=== PATIENT | male | born 1940 | race Caucasian/White ===

== ENCOUNTER 2023-09-03 13:45 | Emergency (ER) | payer OTHER, SELFPAY ==
[2023-09-03 13:56] VITALS: BP 127/55
--- NOTE | 2023-09-03 16:14 | ED.GENMED ---
History of Present Illness
General
Chief Complaint: Cold/Flu/URI Symptoms
Source: patient and spouse
Time Seen by Provider: 09/03/23 16:06
Travel History
Have you had any contact with someone who has COVID-19?: Yes
Comment: pt +
Do you have any symptoms of coronavirus? Fever > 100 degrees, chills, cough, shortness of breath, sore throat, loss of taste or smell, muscle aches, or headache?: Yes
Symptoms:: cough sob
History of Present Illness
History of Present Illness:
83-year-old male with past medical history of hypertension, hyperlipidemia, previous [place] status post 2 cardiac stents presenting to the emergency department with after patient tested positive for COVID at home this past which is the
same day his symptoms started, seen by primary care physician yesterday and tested positive in the office as well coming into the emergency department with who is concerned that patient seemed a little bit more fatigued today and noticed his
pulse ox was very low at home. Patient's was very concerned after patient had COVID in 2019 and got very ill from this. She notes that the patient did not sleep very well last night and had diarrhea throughout the night. Today patient states
he is little bit fatigued but otherwise has no other concerns including chest pain, palpitations, diaphoresis, exertional dyspnea, orthopnea, peripheral edema, abdominal pain or any other concerns.
Past History
Past History
ED Past Medical History: CAD, HTN, Hypercholesterolemia, [place], Renal failure, Psychiatric (anxiety) and Other (nephrotic syndrome w CKD stage III,)
ED Past Surgical History: Cardiac
Social History
Tobacco: Non-smoker
Alcohol: None
Drug: None
Personal:
Living: with family
Review of Systems
Review of Systems
All Other Systems: ROS reviewed and negative except as documented in HPI and ROS
Phy Exam
Physical Exam
Physical Exam:
GENERAL: Alert , in no apparent distress, resting comfortably
EYE: conjunctiva clear
NECK: Supple
ENT: o/p clr, mmm.
LUNGS: no acute respiratory distress
NEUROLOGICAL: Alert and oriented
SKIN: Warm and dry, skin intact.
MUSCULOSKELETAL: well perfused.
PSYCH: Normal and appropriate interaction.
Scores
Heart Failure Risk
Heart Failure Risk Score: Not Applicable
Heart Score for Chest Pain Patients
STEMI patient?: Not applicable
Withdrawal Assessment of Alcohol
Withdrawal Assessment Completed?: Not applicable
Course
Orders/Labs/Results
Orders:
Orders
09/03/23 16:14
CR Chest - 2 Views Urgent
Comment:
Reason For Exam: covid, mild SOB, pulse ox 93%
Vital Signs
Initial and Last Documented VS:
Initial Vital Signs
Temp Pulse Resp BP Pulse Ox
98.4 F 60 16 127/55 93
09/03/23 13:56 09/03/23 13:56 09/03/23 13:56 09/03/23 13:56 09/03/23 13:56
Last Documented Vital Signs
Temp Pulse Resp BP Pulse Ox
98.4 F 60 16 127/55 92
09/03/23 13:56 09/03/23 13:56 09/03/23 13:56 09/03/23 13:56 09/03/23 16:09
MDM/Problems Addressed
MDM/Problems Addressed:
83-year-old male presenting emergency department for evaluation with known COVID x 2 days, started Paxlovid yesterday as well as Mucinex. was concerned with hypoxia at home based off of their pulse oximeter. In the emergency department
patient's pulse ox is persistently between 92 and 95%. Interestingly pulse ox actually increased while patient was ambulating. He did so with no acute distress. Will obtain a chest x-ray. Ultimately I feel patient will still be able to be
discharged home with return precautions discussed with . Reassessment following chest x-ray.
*Radiology
Radiology exam reviewed: preliminary read by ED provider (Trace left pleural effusion)
*Pulse Oximetry
Patient hypoxic: no
*Critical Care Note
Total Time (30-74mins, 75-104mins- exclusive of procedures): Not Applicable
Patient Management
Escalation/DeEscalation of care consider admission/obs:
Patient's pulse ox actually increased while he was ambulating to 94 to 95%. He remains in no acute respiratory distress. Chest x-ray shows a very small left pleural effusion. I discussed this finding with the patient and . Advised to have a
repeat chest x-ray within 1 to 2 weeks to monitor this. Discussed return precautions to the ER but patient is otherwise stable for discharge home.
ED Attending Note
-
Portions of this chart may have been created with voice recognition software.� Occasional wrong word or��sound alike� substitutions may have occurred due to the inherent limitations of voice recognition software.
Discharge Plan
Departure
Patient Disposition: Home (Routine Discharge)
Date of Disposition: 09/03/23
Time of Disposition: 16:59
Patient with high blood pressure during this ER visit?: No
Discharge Problem:
COVID-19
Instructions: COVID-19 (DC)
Prescriptions:
No Action
losartan 50 MG tablet
100 mg PO DAILY
atorvastatin 40 MG tablet
80 mg PO HS
clonazepam 0.5 MG tablet
0.5 mg PO TID
Patient Comments:
04/16/2020-patient lasted filled 04/06/2020 #90
metoprolol succinate 100 MG tablet extended release 24 hr
150 mg PO DAILY
aspirin 81 MG tablet,delayed release (DR/EC)
81 mg PO HS
tamsulosin 0.4 MG capsule
0.8 mg PO HS
amlodipine 10 MG tablet
10 mg PO DAILY
pantoprazole 40 MG tablet,delayed release (DR/EC)
40 mg PO DAILY
buspirone [BuSpar] 30 MG tablet
30 mg PO BID
fish oil-dha-epa 1 EACH capsule
1,200 mg PO DAILY
coenzyme [id number] 1 CAP capsule
100 mg PO DAILY
cefuroxime axetil 500 MG tablet
500 mg PO BID Qty: 14 0RF
hydralazine 50 MG tablet
50 mg PO BID
multivitamin with folic acid [Tab-A-Robel] 1 TABLET tablet
1 tab PO DAILY
Referrals:
Richy Rajan MD [Family Provider] -
Interventions
Interventions:
*Risk Screen - Suicide Last Done: 09/03/23 16:09
*Neglect/Abuse Screening Last Done: 09/03/23 16:08
ED- Fall Risk Assessment Last Done: 09/03/23 16:10
*ED COVID-19 Vaccine History Last Done: 09/03/23 13:56
ED- Pulmonary Assessment Last Done: 09/03/23 16:09
== END 2023-09-03 17:23 | disposition home or self-care (01) ==
LOC: EMR 13:45
PROVIDERS: EMERGENCY PHYSICIAN Emergency Medicine; FAMILY PHYSICIAN Internal Medicine
DX: U07.1 COVID-19 (principal); I12.9 Hypertensive chronic kidney disease with stage 1 through stage 4 chronic kidney disease, or unspecified chronic kidney disease; N18.30 Chronic kidney disease, stage 3 unspecified; E78.00 Pure hypercholesterolemia, unspecified
CPT/HCPCS: 99283; 71046

== ENCOUNTER 2023-09-09 22:13 | Observation (INO) | payer OTHER, SELFPAY ==
[2023-09-09 17:29] VITALS: BP 193/80
[2023-09-09 17:46] VITALS: BMI 27.0
[2023-09-09 17:46] LABS: Glucose - Point of Care 99 mg/dl (70-99)
[2023-09-09 18:26] VITALS: BP 178/70
--- NOTE | 2023-09-09 18:27 | ED.GENMED ---
History of Present Illness
General
Chief Complaint: Change in Mental Status
Source: patient and spouse
Exam Limitations: none
Time Seen by Provider: 09/09/23 18:00
Travel History
Have you had any contact with someone who has COVID-19?: Yes
Comment: COVID +
Do you have any symptoms of coronavirus? Fever > 100 degrees, chills, cough, shortness of breath, sore throat, loss of taste or smell, muscle aches, or headache?: Yes
Symptoms:: COVID +
History of Present Illness
History of Present Illness:
This is a 83 year old male that is brought in by family with c/o confusion. states that he did not sleep last night. States that he took Mucinex DM before going to bed and she told him he would be sorry. Patient states that he was having
dreams and then he was up to the BR and couldn't go back to sleep States that he is in day 9 after diagnosis of COVID. States that he finished his Paxlovid on Tuesday. Patient states that he just feels fuzzy and lightheaded. states that he
has been confused before when he didn't sleep but not this bad. Denies any fever, chills, chest pain, SOB, abd pain nausea, vomiting, diarrhea, headache, dizziness, urinary burning.
Past History
Past History
ED Past Medical History: CAD, Cancer (Basal cell and Squamous cell), HTN, Hypercholesterolemia, [place], Renal failure, Psychiatric (anxiety) and Other (nephrotic syndrome w CKD stage III,UTI, )
ED Past Surgical History: Cardiac (Stents X 2) and Other (MOHs surgery)
Social History
Tobacco: Non-smoker
Alcohol: None
Drug: None
Personal:
Living: with family
Review of Systems
Review of Systems
All Other Systems: ROS reviewed and negative except as documented in HPI and ROS (Patient and )
Constitutional: Reports no symptoms; Denies fever or chills
EENT: Reports no symptoms
Respiratory: Reports cough; Denies trouble breathing
Cardiac: Reports no symptoms; Denies chest pain
ABD/GI: Reports no symptoms; Denies abdominal pain, nausea, vomiting or diarrhea
: Reports no symptoms; Denies dysuria, frequency or urgency
Musculoskeletal: Reports no symptoms
Skin: Reports no symptoms
Neurological: Reports other (Lightheaded); Denies dizzy or headache
Psychiatric: Reports no symptoms
Phy Exam
General Physical Exam
General Presentation: well appearing and no apparent distress
General age: appears stated age
General Skin: warm and dry
General Habitus: elderly
General Mental: alert
General Hydration: appears well hydrated
ENT Exam
ENT Exam: TM's normal, pharynx normal and neck supple
Eye Exam
Eye Exam: PERRL and EOMI
Cardiovascular Exam
Cardiovascular Exam: regular rate/rhythm and normal peripheral pulses
Pulmonary Exam
Pulmonary Exam: lungs clear, no respiratory distress, no rales, chest non tender, no crackles, no rhonchi, no wheezing and other (Cough noted)
Gastrointestinal Exam
Gastrointestinal Exam: normal bowel sounds, non tender, soft, no organomegaly, no pulsatile mass and non distended
NIH Stroke Score
Level of Consciousness: 0 - Alert
LOC questions: 0-Answers both correctly
LOC Commands: 0-Performs both correctly
Best Gaze: 0-Normal
Visual Cao: 0=Normal, no visual loss
Facial palsy: 0=Normal, symmetrical
Motor - Right Arm: 0=No drift 10 seconds
Motor - Left Arm: 0=No drift 10 seconds
Motor - Right Le-No drift 5 seconds
Motor - Left Le-No drift 5 seconds
Limb Ataxia: 0-Absent
Sensation: 0-Normal
Best Language: 0-No aphasia
Dysarthria: 0-Normal
Extinction and Inattention: 0-No abnormality
Total Score:: 0
Musculoskeletal Exam
Musculoskeletal Exam: full ROM and edema (Trace lower leg edema)
Skin Exam
Skin Exam: normal color, warm/dry, no rash and no petechia
Psychiatric Exam
Psychiatric Exam: normal mood/affect
Course
Orders/Labs/Results
Orders:
Orders
09/09/23 17:46
EKG [Electrocardiogram (*1)] Urgent
Reason for Study: Fatigue / Weakness
EKG- Treatment ONCE
09/09/23 18:16
CBC/With Diff [Complete Blood Count/With Diff] Urgent
CMP [Comprehensive Metabolic Panel] Urgent
09/09/23 18:26
CT Head W/o Iv Contrast Urgent
Comment:
Reason For Exam: Confusion
0.9% Sodium Chloride 1000 ml [Nss] 1,000 ml IV BOLUS
09/09/23 18:27
CR Chest - 2 Views Urgent
Comment:
Reason For Exam: Cough
09/09/23 18:45
Troponin I Urgent
09/09/23 19:11
Urinalysis Reflex To Culture Urgent
Date Specimen was Collected: 09/09/23
Time Specimen was Collected: 19:07
Urine Microscopic Reflex Cult Urgent
Abnormal Lab Results
09/09/23 09/09/23
18:16 19:11
RBC 3.56 L 10^6/uL
(4.70-6.10)
Hgb 11.4 L g/dL
(13.0-18.0)
Hct 32.4 L %
(39.0-52.0)
MCH 32.0 H pg
(27.0-31.0)
Abs Immat Gran (auto) 0.1 H 10^3/uL
(0-0.05)
Immature Gran % 0.9 H %
(0-0.5)
Chloride 111 H mmol/L
(98-107)
Carbon Dioxide 19 L mmol/L
(22-30)
BUN 34 H mg/dl
(9-20)
Creatinine 2.4 H mg/dL
(0.7-1.3)
Glucose 100 H mg/dl
(70-99)
Urine Albumin (Reflex) 2+ A
(Neg - Trace)
09/09/23 18:16
09/09/23 18:16
H/H slightly low. Chloride slightly elevated. carbon dioxide low. Chronic renal insufficiency, Glucose nonfasting. Urine negative for infection. Troponin 0.015
Vital Signs
Initial and Last Documented VS:
Initial Vital Signs
Temp Pulse Resp BP Pulse Ox
98.2 F 88 18 193/80 97
09/09/23 17:29 09/09/23 17:29 09/09/23 17:29 09/09/23 17:29 09/09/23 17:29
Last Documented Vital Signs
Temp Pulse Resp BP Pulse Ox
98.2 F 86 17 195/82 96
09/09/23 17:29 09/09/23 19:30 09/09/23 19:30 09/09/23 19:00 09/09/23 19:30
MDM/Problems Addressed
Differential Diagnosis Includes:
post COVID Confusion, UTI, PNA
MDM/Problems Addressed:
This is a 83 year old male that comes in with c/o confusion. states that he did not sleep last night and was up to the bathroom. Patient states that he took Mucinex DM last night and he was having strange dreams and then he was unable to go
back to sleep after he got up to the BR. States that he just feels fuzzy.
Will get labs Urine, CT head and give IV fluids.
Back into see patient. states that patient is still very confused. States that he is calling people by the wrong name and he just can' remember. CT of head is still pending. However, feel that patient will need will need admission. Patient is
very angry with . Explained to patient that this this may just be over night but he doesn't want to stay. Feel that it is in patient best interest to stay.
CT normal. Will admit patient. Hospitalist notified.
Chronic conditions affecting care:
NA
Acute Exacerbation and/or Progression of Chronic Illness:
NA
*Radiology
Radiology exam reviewed: preliminary read by ED provider (Chest- Negative for active disease. CT head- No acute intracranial abnormality ) and radiology read reviewed (Chest-No acute cardiopulmonary process. )
*Pulse Oximetry
Patient hypoxic: no
*EKG
Interpreted by ED Provider?: Yes
Heart Rate: 84
Rate: normal
Rhythm: sinus
[place]: normal axis
Interval: normal interval
QRS Pattern: normal QRS
Ischemia: T-wave inversion (III, aVF)
*Still Operator Brandy Interpretation
Rate: normal
Heart Rate: 84
Rhythm: sinus
*Critical Care Note
Total Time (30-74mins, 75-104mins- exclusive of procedures): Not Applicable
ED Attending Note
-
Portions of this chart may have been created with voice recognition software.� Occasional wrong word or��sound alike� substitutions may have occurred due to the inherent limitations of voice recognition software.
Discharge Plan
Departure
Patient Disposition: Admit
Date of Disposition: 09/09/23
Time of Disposition: 20:58
Admit to: Med/Surg
Presentation/result/management discussed w/ accepting MD/DO: Hospitalist
Patient with high blood pressure during this ER visit?: Yes
Condition: Good
Covid-19: Not Applicable
Discharge Problem:
Change in mental status
Prescriptions:
No Action
losartan 50 MG tablet
100 mg PO DAILY
atorvastatin 40 MG tablet
80 mg PO HS
clonazepam 0.5 MG tablet
0.5 mg PO TID
metoprolol succinate 100 MG tablet extended release 24 hr
50 mg PO HS
aspirin 81 MG tablet,delayed release (DR/EC)
81 mg PO HS
tamsulosin 0.4 MG capsule
0.8 mg PO HS
amlodipine 10 MG tablet
10 mg PO QPM
pantoprazole 40 MG tablet,delayed release (DR/EC)
40 mg PO DAILY
fish oil-dha-epa 1 EACH capsule
1,200 mg PO DAILY
hydralazine 50 MG tablet
50 mg PO BID
multivitamin with folic acid [Tab-A-Robel] 1 TABLET tablet
1 tab PO DAILY
acetaminophen [Tylenol Extra Strength] 500 mg Tablet
1,000 mg PO Q6H PRN (Reason: mild pain)
buspirone [BuSpar] 30 mg Tablet
30 mg PO BID
Mucinex DM 30-600 mg Tablet Extended Release 12 Hr
1 tab PO [id number] PRN (Reason: cough)
Referrals:
Richy Raajn MD [Family Provider] -
Interventions
Interventions:
*Risk Screen - Suicide Last Done: 09/09/23 17:47
*General Assessment Last Done: 09/09/23 17:29
*Neglect/Abuse Screening Last Done: 09/09/23 17:47
ED- Fall Risk Assessment Last Done: 09/09/23 18:00
*ED COVID-19 Vaccine History Last Done: 09/09/23 17:29
ED- Pulmonary Assessment Last Done: 09/09/23 18:00
ED- Neurological Assessment Last Done: 09/09/23 18:00
ED- Cardiac Assessment Last Done: 09/09/23 18:00
ED Swallowing Screen Last Done: 09/09/23 18:00
[2023-09-09 18:31] LABS: % Basophils 0.6 % (0-2); % Eosinophils 2.4 % (0-6); % Immature Granulocytes 0.9 % (0-0.5); % Lymphocytes 24.7 % (20.5-51.1); % Monocytes 8.2 % (1.7-9.3); % Neutrophils 63.2 % (42.2-75.2); Absolute Basophils 0.1 10^3/uL (0-0.2); Absolute Eosinophils 0.2 10^3/uL (0-0.7); Absolute Immature Granulocytes 0.1 10^3/uL (0-0.05); Absolute Lymphocytes 1.9 10^3/uL (1.2-3.4); Absolute Monocytes 0.6 10^3/uL (0.1-0.6); Absolute Neutrophils 4.9 10^3/uL (1.4-6.5); Hematocrit 32.4 % (39.0-52.0); Hemoglobin 11.4 g/dL (13.0-18.0); Mean Corp Hgb Conc. 35.2 g/dL (33.0-37.0); Nucleated Red Blood Cells % 0 % (-); Platelet Count 285 10^3/uL (130-400); Red Blood Cell Count 3.56 10^6/uL (4.70-6.10); Red Cell Dist. Width 12.8 % (11.5-14.5); White Blood Cell Count 7.8 10^3/uL (4.8-10.8)
[2023-09-09] MEDS: NSS 1000 IV (18:31)
[2023-09-09 18:53] LABS: ALT (SGPT) 21 U/L (0-50); AST (SGOT) 26 U/L (17-59); Albumin 3.9 g/dl (3.5-5.0); Alkaline Phosphatase 76 U/L (38-126); Blood Urea Nitrogen 34 mg/dl (9-20); Carbon Dioxide 19 mmol/L (22-30); Chloride 111 mmol/L (98-107); Estimated Creatinine Clearance 20 ml/min; Glucose 100 mg/dl (70-99); Potassium 4.5 mmol/L (3.5-5.1); Sodium 139 mmol/L (135-145); Total Bilirubin 0.7 mg/dl (0.2-1.3); Total Protein 6.8 g/dl (6.3-8.2); eGFR 26.44
[2023-09-09 19:00] VITALS: BP 195/82
[2023-09-09 19:15] LABS: Troponin I 0.015 ng/ml
[2023-09-09 19:31] LABS: Urine Albumin 2+ (Neg - Trace); Urine Bilirubin Negative (Negative); Urine Character Clear (Clear); Urine Color Yellow; Urine Glucose Negative (Negative); Urine Ketone Negative (Negative); Urine Leukocyte Negative (Negative); Urine Nitrite Negative (Negative); Urine Occult Blood Negative (Negative); Urine Specific Gravity 1.015 (<1.030); Urine Urobilinogen Negative (Neg - 1+)
[2023-09-09 19:51] LABS: Urine Red Blood Cell None Seen /HPF (0-2); Urine White Cell None Seen /HPF (0-5)
--- NOTE | 2023-09-09 21:33 | HPS.HSE ---
Family Physician
-
Family Physician: Aneudy Rajan
Chief Complaint
-
AMS
History of Present Illness
83F Recent Covid infection 9 days ago, HX CKD4, CAD with stent, HX urosepsis BiB family for confusion.
states that he did not sleep last night. He took Mucinex DM before going to bed and she told him he would be sorry. Patient reports he was having dreams and then he was up to the BR and couldn't go back to sleep
states that he has been confused before when he didn't sleep but not this bad.
Day 9 after diagnosis of COVID. S/p Paxlovid on Tuesday. P
ROS
feels fuzzy and lightheaded.
Denies any fever, chills, chest pain, SOB, abd pain nausea, vomiting, diarrhea, headache, dizziness, ur
Medical History
Past Medical History
Past Medical History: Reports Other
Additional Past Medical History:
CAD, Cancer (Basal cell and Squamous cell), HTN, Hypercholesterolemia, [place], Renal failure, Psychiatric (anxiety) and Other (nephrotic syndrome w CKD stage IV ,UTI, )
Past Surgical History: Reports Other
Additional Past Surgical History:
Cardiac (Stents X 2) and Other (MOHs surgery)
Social History
Tobacco: Non-smoker
Alcohol: None
Drug: None
Personal:
Living: With Family
Family History
Family History: Not pertinent
Allergies / Home Medications
Allergies reflects when Allergies were last updated in [facility].
Home Medications with original date entered in [facility]
Allergy/Medication List:
Allergies
Allergy/AdvReac Type Severity Reaction Status Date / Time
doxycycline Allergy Vomiting/UT Verified 09/09/23 17:35
I
Home Medications
amlodipine 10 mg tablet 10 mg PO QPM Blood pressure 10/23/19
aspirin 81 mg tablet,delayed release 81 mg PO HS Blood clot prevention/tx 10/23/19
atorvastatin 40 mg tablet 80 mg PO HS High cholesterol 10/23/19
clonazepam 0.5 mg tablet 0.5 mg PO TID Mental Health/Anxiety 10/23/19
fish oil-dha-epa 1,200 mg-144 mg-216 mg capsule 1,200 mg PO DAILY Supplement 10/23/19
losartan 50 mg tablet 100 mg PO DAILY Blood pressure 10/23/19
metoprolol succinate 100 mg tablet,extended release 24 hr 50 mg PO HS Blood pressure 10/23/19
pantoprazole 40 mg tablet,delayed release 40 mg PO DAILY Gastrointestinal issue 10/23/19
tamsulosin 0.4 mg capsule 0.8 mg PO HS Urinary issue 10/23/19
hydralazine 50 mg tablet 50 mg PO BID Blood pressure 04/16/20
multivitamin with folic acid 400 mcg tablet (Tab-A-Robel) 1 tab PO DAILY Supplement 04/16/20
acetaminophen 500 mg tablet (Tylenol Extra Strength) 1,000 mg PO Q6H PRN mild pain 09/09/23
buspirone 30 mg tablet 30 mg PO BID 09/09/23
dextromethorphan-guaifenesin 30 mg-600 mg tablet extended keafbtw02 hr (Mucinex DM) 1 tab PO [id number] PRN cough 09/09/23
Review of Systems
-
Constitutional: Reports No Symptoms
EENT: Reports No Symptoms
Respiratory: Reports No Symptoms
Cardiac: Reports No Symptoms
Abdomen/GI: Reports No Symptoms
: Reports No Symptoms
Musculoskeletal: Reports No Symptoms
Skin: Reports No Symptoms
Neurological: Reports See HPI
Endocrine: Reports No Symptoms
Hematologic/Lymphatic: Reports No Symptoms
Psych: Reports No Symptoms
Physical Exam
Vital Signs
Vital Signs
Temp Pulse Resp BP Pulse Ox
98.2 F 86 17 195/82 96
09/09/23 17:29 09/09/23 19:30 09/09/23 19:30 09/09/23 19:00 09/09/23 19:30
Physical Exam
General: Other (see below )
Laboratory Results
-
09/09/23 18:16
09/09/23 18:16
Laboratory Results
Total Bilirubin 0.7 mg/dl (0.2-1.3) 09/09/23 18:16
AST 26 U/L (17-59) 09/09/23 18:16
ALT 21 U/L (0-50) 09/09/23 18:16
Alkaline Phosphatase 76 U/L (38-126) 09/09/23 18:16
Troponin I 0.015 ng/ml 09/09/23 18:45
Data Reviewed
-
Diagnostic Radiology: Report Reviewed by me
CT Scan: Report Reviewed by me
Medical Tests (Nuc Med, Echo, EKG etc): Report Reviewed by me
Lab Data: Labs Reviewed by me
Old Records: Reviewed
Impression/Plan
-
Reviewed VS: afebrile BP 190s/80s HR 80s POx 94- 97 on RA
PE
Gen: no apparent distress
HEENT: symmetric face , nl speech
Neck: supple
Lungs: CTA
Cor: RRR S1 S2
Abdomen: soft NT NG
PATENT LAW SPECIALIST: AAO3 NFND - he could nit recall name of the President
MS: no edema
Psych: normal mood/affect
NIH Stroke Score ZERO
Data
Nl WCC
Hgb 11.4 - baseline is 12s
Cl 111
CO2 19
BUN 34
Cr 2.4 - baseline is low 2s to mid 2s c/w CKD4
eGFR 26
NAG metabolic acidosis = 9
NEG TPNI
NEG UA
CXR: No acute cardiopulmonary process.
HCT: No acute intracranial abnormality
EKG
NORMAL SINUS RHYTHM
INFERIOR INFARCT (CITED ON OR BEFORE 10-DEC-1998)
ABNORMAL ECG
WHEN COMPARED WITH ECG OF 24-SEP-2021 19:38,
NO SIGNIFICANT CHANGE WAS FOUND
Pending Covid AG ( POS Covid 9 days ago at home)
10/14/21 ECHO
LVEF 55-60%
Stage I diastolic dysfunction
Mild mitral regurgitation.
Mild to moderate aortic stenosis with peak/mean gradients of 27/16 mmHg.
MEGHAN is calculated at 1.6 cm sq, using a LVOT of 2.3 cm.
Moderate eccentric aortic regurgitation.
Last hospitalist admission: 04/16/20 - 04/18/20
DISCHARGE DIAGNOSES:
1. Sepsis secondary to urinary tract infection from Klebsiella oxytoca.
2. Left hydrocele with mild orchitis, spermatic cord ectasia.
CHRONIC DISCHARGE DIAGNOSES:
1. Coronary artery disease with history of myocardial infarction and stents.
2. Hyperlipidemia.
3. Chronic kidney disease stage 2/3.
4. Essential hypertension.
ASSESSMENT & PLAN
Reported acute confusional state - resolved upon my evaluation - suspect likely TME > TIA
Intermittent verbally combative
DDX: Sleep deprivation, Mucinex DM, post Covid syndrome
NEG HCT
Underlying MCI ?
- Held Clonazepam tid - switch to PRN
- Falls precaution
- Obs MS
- Gentle IVF
- PT/OT
- Neuro consult
Accelerated HTN
HX Essential HTN
- add IV Hydralazine PRN
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
- cont. PO metoprolol succinate
- Held Losartan due to CKD4
CKD4
- Held Losartan
- Gentle IV NS 40/H x 250 cc only
HX CAD with H/o [place] and stents
- continue ASA/ Statin
HLD
- cont. Statin
DVT PPX - SQH
Code: Full
Obs MS
[2023-09-09 21:41] LABS: COVID-19 Antigen Negative (Negative)
--- NOTE | 2023-09-09 23:00 | PTCARENOTE ---
Received patient from ED. Patient AAOx3, drowsy, slightly confused - trouble working his phone, slightly agitated - doesn't want to be here. Says he didn't sleep last night. Lungs decreased. VSS. ST/SR on the monitor. Bed alarm placed for safety.
Patient verbalized an understanding to ring for transfers. Urinal provided as requested. Call cloud in reach.
[2023-09-09] MEDS: ASPIR LOW (ENTERIC COATED) 81 MG PO (23:20)
[2023-09-09] MEDS: FLOMAX 0.800000000000000044 MG PO (23:20)
[2023-09-09] MEDS: TOPROL XL 50 MG PO (23:23)
[2023-09-09] MEDS: NSS 250 IV (23:27)
[2023-09-09] MEDS: LIPITOR 80 MG PO (23:28)
[2023-09-09 23:53] VITALS: BP 175/84
[2023-09-10] MEDS: KLONOPIN 0.5 MG PO (02:50)
[2023-09-10 03:55] VITALS: BP 179/94
[2023-09-10 04:25] VITALS: BP 178/82
[2023-09-10 04:31] VITALS: BMI 26.3
[2023-09-10] MEDS: APRESOLINE 50 MG PO (04:43)
--- NOTE | 2023-09-10 04:58 | PTCARENOTE ---
Daily Apresoline was given early for HTN per covering provider.
[2023-09-10 07:54] VITALS: BP 166/78
[2023-09-10 08:27] LABS: Hematocrit 33.5 % (39.0-52.0); Hemoglobin 11.6 g/dL (13.0-18.0); Mean Corp Hgb Conc. 34.6 g/dL (33.0-37.0); Mean Corpuscular Hgb 31.6 pg (27.0-31.0); Mean Corpuscular Volume 91.3 fL (80.0-94.0); Mean Platelet Volume 10.3 fL (7.4-10.4); Platelet Count 305 10^3/uL (130-400); Red Blood Cell Count 3.67 10^6/uL (4.70-6.10); Red Cell Dist. Width 12.7 % (11.5-14.5); White Blood Cell Count 9.1 10^3/uL (4.8-10.8)
[2023-09-10 08:49] LABS: Blood Urea Nitrogen 30 mg/dl (9-20); Carbon Dioxide 21 mmol/L (22-30); Chloride 112 mmol/L (98-107); Estimated Creatinine Clearance 21 ml/min; Glucose 106 mg/dl (70-99); HDL Cholesterol 42 mg/dl; LDL Cholesterol, Calculated 75 mg/dl; Potassium 4.2 mmol/L (3.5-5.1); Sodium 139 mmol/L (135-145); Total Cholesterol 149 mg/dl (50-199); Triglyceride 160 mg/dl (10-149); Very Low Density Lipoprotein 32 mg/dl (0-30); eGFR 27.83
--- NOTE | 2023-09-10 09:15 | W.PN.HOSP.TC ---
Today's Communication/Plan
-
d/c
Assessment / Plan
Assessment / Plan
pt is an 83 year old male
Reported acute confusional state--resolved upon admitting MD evaluation--suspect likely TME due to sleep deprivation, meds (Mucinex DM, clonazepam), less likely hypoxia from Covid as pulse ox 95% RA--Intermittent verbally combative suspect maybe
developing early cognitive issues using verbal aggressiveness to cover it up?-- head CT neg--will cancel PT/OT/neuro
DDX: Sleep deprivation, Mucinex DM, post Covid syndrome
Accelerated�HTN with Essential HTN --elevation likely due to agitation--cont meds as able- Held Losartan due to CKD4
CKD4- Held Losartan- s/p IVF
HX CAD with H/o CO and stents- continue ASA/ Statin
HLD- cont. Statin
DVT PPX - SQH
Code: Full
d/c-- not opposed
Anticipated Discharge: Today
Subjective/Interval History
-
Date of Service: September 10, 2023
pt wants to go home-- not opposed
Objective Data
-
Labs:
Laboratory Results
09/10/23
07:58
WBC 9.1
Hgb 11.6 L
Hct 33.5 L
Plt Count 305
Sodium 139
Potassium 4.2
Chloride 112 H
Carbon Dioxide 21 L
BUN 30 H
Creatinine 2.3 H
Glucose 106 H
Calcium 9.0
Vital Signs:
max temp for 24 hours
09/10/23
03:55
Temp 98.7 F
Vital Signs
Temp Pulse Resp BP Pulse Ox
97.6 F 90 18 166/78 95
09/10/23 07:54 09/10/23 07:54 09/10/23 07:54 09/10/23 07:54 09/10/23 07:54
I&O
09/09/23 09/10/23 09/11/23
06:59 06:59 06:59
Intake Total 730 / 730
Output Total 1400 / 1400
Balance -670 / -670
Review of Systems
-
All other systems: Reviewed and negative
Physical Exam
-
General: Well Developed, Well Nourished and No Apparent Distress
HEENT: Normocephalic and Atraumatic
Respiratory: Clear to Auscultation; Negative Wheezes or Rhonchi
Cardiac: Regular Rhythm and S1/S2; Negative Murmur
GI: Soft, Nontender, Nondistended and Normal Bowel Sounds
Musculoskeletal: No Clubbing, No Cyanosis and No Edema
Psych: Other (very angry--nasty to verbally )
--- NOTE | 2023-09-10 10:21 | CM ---
CM following re: discharge planning.
reviewed pt's chart, met with pt and pt's spouse Holly at bedside.
Pt is an 83 year old male, admitted with OBS status and primary dx of acute confusional state. OBS status explained to pt's and his spouse, they expressed understanding, JONAS letter signed, placed in chart, pt has a copy.
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
PCP: Aneudy Rajan
Pharmacy: [facility].
Discharge order noted. Both pt and his spouse are aware and pt's spouse stated she will transport pt home. No after care VN services identified.
D/C plan: home no needs. Spouse to transport.
--- NOTE | 2023-09-10 13:26 | W.DCSUMMARY ---
Discharge Summary
Discharge Data
Date of Admission: 09/09/23
Date of Discharge: 09/10/23
-
Pending Results: No
Hospital Course
Primary care physician : Aneudy Rajan
Principal Discharge diagnosis : Reported acute confusional state
Chronic Discharge diagnosis : Essential hypertension with accelerated blood pressure, chronic kidney disease stage IV, history of coronary artery disease with myocardial infarction and stents in the past, hyperlipidemia
Hospital Course : Patient was an 83-year-old male with a recent COVID infection 9 days prior to admission. He was brought in for confusion. Patient's stated that he did not sleep last night he took Mucinex DM before going to bed. She told
him he would be sorry. Patient reported he was having dreams and then woke up and could not get back to sleep. Patient's stated that he has been confused before when he has not slept in the past but has never been this bad. Patient was
brought in as observation.
Problem #1: Reported acute confusional state. This reportedly was resolved upon the admitting physician's evaluation. This is likely due to TME from sleep deprivation, medications including Mucinex DM, clonazepam and less likely hypoxia from
COVID. I however am concerned that he may be developing early cognitive issues using his verbal aggressiveness and anger to cover it up. Patient was very angry and aggressive towards his with degrading comments. CAT scan of his head is
negative. Room air pulse ox 95%. I have called the patient's primary care physician with my concern that this may be early cognitive decline and that the patient will likely need formal neuropsychiatric testing if he is indeed willing to go for it.
Problem #2: All other medical issues. These include Essential hypertension with accelerated blood pressure, chronic kidney disease stage IV, history of coronary artery disease with myocardial infarction and stents in the past, hyperlipidemia.
These medical issues were stable during his hospitalization. Medications were continued as able.
Patient is stable for discharge home at this time. In fact, is agreeable to have the patient discharged as he has been complaining he did not know why he had to stay in the first place. If there are any questions regarding this dictation or
his hospital stay, please not hesitate to call. Our office number is [phone].
Important imaging findings :
HEAD CT IMPRESSION:
No acute intracranial abnormality.
Discharge Plan
-
Patient Disposition: Home (Routine Discharge)
Discharge Diagnosis/Procedures: Reported acute confusional state, accelerated hypertension on essential hypertension, chronic kidney disease stage IV, history of coronary artery disease with history of previous myocardial infarction and stent
placement, hyperlipidemia
Condition: Good
Diet: Low Cholesterol and Low Sodium
Activity: As tolerated
Driving Restrictions: Not until seen by your Dr
Bathing Restrictions: None
Referrals:
Richy Rajan MD [Family Provider] - in less than 1 week
Prescriptions:
Continued
losartan 50 MG tablet
100 mg PO DAILY
atorvastatin 40 MG tablet
80 mg PO HS
clonazepam 0.5 MG tablet
0.5 mg PO TID
metoprolol succinate 100 MG tablet extended release 24 hr
50 mg PO HS
aspirin 81 MG tablet,delayed release (DR/EC)
81 mg PO HS
tamsulosin 0.4 MG capsule
0.8 mg PO HS
amlodipine 10 MG tablet
10 mg PO QPM
pantoprazole 40 MG tablet,delayed release (DR/EC)
40 mg PO DAILY
fish oil-dha-epa 1 EACH capsule
1,200 mg PO DAILY
hydralazine 50 MG tablet
50 mg PO BID
multivitamin with folic acid [Tab-A-Robel] 1 TABLET tablet
1 tab PO DAILY
acetaminophen [Tylenol Extra Strength] 500 mg Tablet
1,000 mg PO Q6H PRN (Reason: mild pain)
buspirone 30 mg Tablet
30 mg PO BID
Mucinex DM 30-600 mg Tablet Extended Release 12 Hr
1 tab PO [id number] PRN (Reason: cough)
Discharge Orders:
Discharge Patient (As Directed); Ordered 09/10/23
Ordered By: Sujey Estrada
Discharge Date and Time
Discharge Date/Time: 09/10/23 10:49
== END 2023-09-10 10:49 | disposition home or self-care (01) ==
LOC: 2 NORTH 22:13
PROVIDERS: Clinical Nurse Specialist Family Health; Emergency Medicine; ADMITTING PHYSICIAN Internal Medicine; ATTENDING PHYSICIAN Internal Medicine; EMERGENCY PHYSICIAN Emergency Medicine; FAMILY PHYSICIAN Internal Medicine
DX: R41.0 Disorientation, unspecified (principal); G92.8 Other toxic encephalopathy; I25.10 Atherosclerotic heart disease of native coronary artery without angina pectoris; I12.9 Hypertensive chronic kidney disease with stage 1 through stage 4 chronic kidney disease, or unspecified chronic kidney disease; N18.4 Chronic kidney disease, stage 4 (severe); N39.0 Urinary tract infection, site not specified; B96.1 Klebsiella pneumoniae [K. pneumoniae] as the cause of diseases classified elsewhere; E78.5 Hyperlipidemia, unspecified; N43.3 Hydrocele, unspecified; N45.2 Orchitis; F41.9 Anxiety disorder, unspecified; E78.00 Pure hypercholesterolemia, unspecified; Z72.820 Sleep deprivation; I25.2 Old myocardial infarction; Z87.440 Personal history of urinary (tract) infections; Z85.828 Personal history of other malignant neoplasm of skin; Z79.82 Long term (current) use of aspirin; Z95.5 Presence of coronary angioplasty implant and graft; Z88.1 Allergy status to other antibiotic agents; Z11.52 Encounter for screening for COVID-19
CPT/HCPCS: 70450; 71046; 80048; 80053; 80061; 81003; 81015; 82962; 84484; 85025; 85027; 87811; 93005; 96360; 99285; G0378

== ENCOUNTER → 2023-09-13 07:46 | Outpatient (REF) | payer OTHER, SELFPAY | LOC: RAD 07:46 | PROVIDERS: ATTENDING PHYSICIAN Internal Medicine | DX: J90 Pleural effusion, not elsewhere classified (principal) | CPT/HCPCS: 71046 ==

== ENCOUNTER → 2023-10-18 08:20 | Outpatient (REF) | payer OTHER, SELFPAY ==
[2023-10-18 08:58] LABS: Hemoglobin 11.3 g/dL (13.0-18.0)
[2023-10-18 09:41] LABS: Blood Urea Nitrogen 36 mg/dl (9-20); Calcium 9.2 mg/dl (8.4-10.2); Carbon Dioxide 24 mmol/L (22-30); Chloride 106 mmol/L (98-107); Glucose 89 mg/dl (70-99); Phosphorus 4.4 mg/dl (2.5-4.5); Sodium 139 mmol/L (135-145); eGFR 25.18
[2023-10-18 09:47] LABS: Intact PTH 104.9 pg/ml (13.6-85.8)
[2023-10-18 10:10] LABS: Protein/creatinine Ratio 2.2; Urine Protein 196 mg/dl
== END ==
LOC: REG 08:20
PROVIDERS: ATTENDING PHYSICIAN Specialist; FAMILY PHYSICIAN Internal Medicine
DX: I10 Essential (primary) hypertension (principal); N18.4 Chronic kidney disease, stage 4 (severe); D63.1 Anemia in chronic kidney disease; R80.9 Proteinuria, unspecified; N17.9 Acute kidney failure, unspecified
CPT/HCPCS: 36415; 80048; 82570; 83970; 84100; 84156; 85018

== ENCOUNTER → 2023-11-17 06:42 | Outpatient (REF) | payer OTHER, SELFPAY | LOC: RAD 06:42 | PROVIDERS: ATTENDING PHYSICIAN Internal Medicine | DX: R41.0 Disorientation, unspecified (principal) | CPT/HCPCS: 93880 ==

== ENCOUNTER → 2023-11-26 09:17 | Outpatient (REF) | payer OTHER, SELFPAY ==
[2023-11-26 09:51] LABS: % Basophils 0.6 % (0-2); % Immature Granulocytes 0.2 % (0-0.5); % Lymphocytes 33.4 % (20.5-51.1); % Monocytes 7.7 % (1.7-9.3); % Neutrophils 55.1 % (42.2-75.2); Absolute Eosinophils 0.2 10^3/uL (0-0.7); Absolute Lymphocytes 1.8 10^3/uL (1.2-3.4); Absolute Monocytes 0.4 10^3/uL (0.1-0.6); Hematocrit 33.4 % (39.0-52.0); Hemoglobin 11.2 g/dL (13.0-18.0); Mean Corp Hgb Conc. 33.5 g/dL (33.0-37.0); Mean Corpuscular Hgb 31.9 pg (27.0-31.0); Mean Corpuscular Volume 95.2 fL (80.0-94.0); Mean Platelet Volume 11.2 fL (7.4-10.4); Nucleated Red Blood Cells % 0 % (-); Platelet Count 184 10^3/uL (130-400); Red Blood Cell Count 3.51 10^6/uL (4.70-6.10); Red Cell Dist. Width 13.6 % (11.5-14.5); White Blood Cell Count 5.4 10^3/uL (4.8-10.8)
[2023-11-26 10:04] LABS: ALT (SGPT) 15 U/L (0-50); AST (SGOT) 23 U/L (17-59); Albumin 3.6 g/dl (3.5-5.0); Alkaline Phosphatase 72 U/L (38-126); Blood Urea Nitrogen 43 mg/dl (9-20); Calcium 9.4 mg/dl (8.4-10.2); Carbon Dioxide 22 mmol/L (22-30); Chloride 111 mmol/L (98-107); Glucose 98 mg/dl (70-99); HDL Cholesterol 45 mg/dl; LDL Cholesterol, Calculated 39 mg/dl; Potassium 4.1 mmol/L (3.5-5.1); Sodium 140 mmol/L (135-145); Total Bilirubin 0.8 mg/dl (0.2-1.3); Total Cholesterol 100 mg/dl (50-199); Total Protein 6.3 g/dl (6.3-8.2); Triglyceride 83 mg/dl (10-149); Very Low Density Lipoprotein 16 mg/dl (0-30); eGFR 22.96
== END ==
LOC: REG 09:17
PROVIDERS: ATTENDING PHYSICIAN Internal Medicine
DX: I10 Essential (primary) hypertension (principal); D63.1 Anemia in chronic kidney disease; E78.5 Hyperlipidemia, unspecified; Z00.01 Encounter for general adult medical examination with abnormal findings
CPT/HCPCS: 36415; 80053; 80061; 85025

== ENCOUNTER → 2023-12-03 09:45 | Outpatient (REF) | payer OTHER, SELFPAY ==
[2023-12-03 13:02] LABS: Folate 15.6 ng/ml (2.76-20); Vitamin B12 725 pg/ml (239-931)
== END ==
LOC: REG 09:45
PROVIDERS: ATTENDING PHYSICIAN Internal Medicine
DX: D63.1 Anemia in chronic kidney disease (principal); R71.8 Other abnormality of red blood cells; D53.9 Nutritional anemia, unspecified
CPT/HCPCS: 36415; 82607; 82746

== ENCOUNTER → 2024-01-24 09:58 | Outpatient (REF) | payer OTHER, SELFPAY ==
[2024-01-24 11:47] LABS: Urine Protein 277 mg/dl (0-12)
[2024-01-24 12:00] LABS: Blood Urea Nitrogen 41 mg/dl (9-20); Calcium 9.1 mg/dl (8.4-10.2); Carbon Dioxide 23 mmol/L (22-30); Chloride 106 mmol/L (98-107); Glucose 94 mg/dl (70-99); Phosphorus 4.3 mg/dl (2.5-4.5); Potassium 4.5 mmol/L (3.5-5.1); Sodium 137 mmol/L (135-145); eGFR 21.07
[2024-01-25 09:28] LABS: Intact PTH 124.7 pg/ml (13.6-85.8)
== END ==
LOC: REG 09:58
PROVIDERS: ATTENDING PHYSICIAN Specialist; FAMILY PHYSICIAN Internal Medicine
DX: I10 Essential (primary) hypertension (principal); N18.4 Chronic kidney disease, stage 4 (severe); R80.9 Proteinuria, unspecified
CPT/HCPCS: 36415; 80048; 82570; 83970; 84100; 84156; 85018

== ENCOUNTER → 2024-02-03 07:24 | Outpatient (REF) | payer OTHER, SELFPAY ==
[2024-02-06 00:35] LABS: PSA Total 5.6 ng/mL (0.0-4.0)
== END ==
LOC: REG 07:24
PROVIDERS: ATTENDING PHYSICIAN Surgery; FAMILY PHYSICIAN Internal Medicine
DX: R97.20 Elevated prostate specific antigen [PSA] (principal)
CPT/HCPCS: 36415; 84153; 84154

== ENCOUNTER → 2024-02-09 08:01 | Outpatient (REF) | payer OTHER, SELFPAY | LOC: RCS 08:01 | PROVIDERS: ATTENDING PHYSICIAN Internal Medicine Cardiovascular Disease; FAMILY PHYSICIAN Internal Medicine | DX: I35.0 Nonrheumatic aortic (valve) stenosis (principal) | CPT/HCPCS: 93306 ==

== ENCOUNTER → 2024-02-22 07:50 | Outpatient (REF) | payer OTHER, SELFPAY ==
[2024-02-22 10:24] LABS: Blood Urea Nitrogen 43 mg/dl (9-20); Calcium 8.9 mg/dl (8.4-10.2); Carbon Dioxide 21 mmol/L (22-30); Chloride 112 mmol/L (98-107); Glucose 91 mg/dl (70-99); Potassium 4.3 mmol/L (3.5-5.1); Sodium 141 mmol/L (135-145); eGFR 24.02
== END ==
LOC: REG 07:50
PROVIDERS: ATTENDING PHYSICIAN Specialist; FAMILY PHYSICIAN Internal Medicine; REFERRING PHYSICIAN Internal Medicine Cardiovascular Disease
DX: I10 Essential (primary) hypertension (principal)
CPT/HCPCS: 36415; 80048

== ENCOUNTER → 2024-04-24 07:36 | Outpatient (REF) | payer OTHER, SELFPAY ==
[2024-04-24 08:48] LABS: Albumin 3.6 g/dl (3.5-5.0); Blood Urea Nitrogen 41 mg/dl (9-20); Calcium 8.5 mg/dl (8.4-10.2); Carbon Dioxide 22 mmol/L (22-30); Chloride 105 mmol/L (98-107); Glucose 84 mg/dl (70-99); Phosphorus 3.6 mg/dl (2.5-4.5); Potassium 4.5 mmol/L (3.5-5.1); Sodium 139 mmol/L (135-145); eGFR 24.02
[2024-04-24 09:03] LABS: Urine Albumin 1+ (Neg - Trace); Urine Bilirubin Negative (Negative); Urine Character Clear (Clear); Urine Color Yellow; Urine Glucose Negative (Negative); Urine Ketone Negative (Negative); Urine Leukocyte Negative (Negative); Urine Nitrite Negative (Negative); Urine Occult Blood Negative (Negative); Urine Urobilinogen Negative (Neg - 1+)
[2024-04-24 09:16] LABS: Urine Red Blood Cell 0-2 /HPF (0-2); Urine White Cell 0-2 /HPF (0-5)
[2024-04-24 09:18] LABS: Protein/creatinine Ratio 2.1; Urine Protein 100 mg/dl
== END ==
LOC: REG 07:36
PROVIDERS: ATTENDING PHYSICIAN Specialist; FAMILY PHYSICIAN Internal Medicine
DX: R80.9 Proteinuria, unspecified (principal); I10 Essential (primary) hypertension; N18.4 Chronic kidney disease, stage 4 (severe); N25.81 Secondary hyperparathyroidism of renal origin
CPT/HCPCS: 36415; 80048; 81003; 81015; 82040; 82570; 84100; 84156; 85018

== ENCOUNTER → 2024-05-28 07:27 | Outpatient (REF) | payer OTHER, SELFPAY ==
[2024-05-28 09:28] LABS: ALT (SGPT) 17 U/L (0-50); AST (SGOT) 23 U/L (17-59); Albumin 3.9 g/dl (3.5-5.0); Alkaline Phosphatase 66 U/L (38-126); Direct Bilirubin 0.2 mg/dl (0.0-0.4); HDL Cholesterol 45 mg/dl; LDL Cholesterol, Calculated 39 mg/dl; Total Bilirubin 0.7 mg/dl (0.2-1.3); Total Cholesterol 110 mg/dl (50-199); Total Protein 6.8 g/dl (6.3-8.2); Triglyceride 131 mg/dl (10-149); Very Low Density Lipoprotein 26 mg/dl (0-30)
== END ==
LOC: REG 07:27
PROVIDERS: ATTENDING PHYSICIAN Internal Medicine
DX: I10 Essential (primary) hypertension (principal); E78.49 Other hyperlipidemia
CPT/HCPCS: 36415; 80061; 80076

== ENCOUNTER → 2024-08-24 07:14 | Outpatient (REF) | payer OTHER, SELFPAY ==
[2024-08-24 08:17] LABS: Hemoglobin 10.9 g/dL (13.0-18.0)
[2024-08-24 08:48] LABS: Blood Urea Nitrogen 45 mg/dl (9-20); Calcium 8.1 mg/dl (8.4-10.2); Carbon Dioxide 22 mmol/L (22-30); Chloride 109 mmol/L (98-107); Glucose 91 mg/dl (70-99); Phosphorus 3.6 mg/dl (2.5-4.5); Potassium 4.2 mmol/L (3.5-5.1); Sodium 140 mmol/L (135-145); eGFR 22.82
[2024-08-24 10:09] LABS: Protein/creatinine Ratio 3.4; Urine Protein 401 mg/dl
== END ==
LOC: REG 07:14
PROVIDERS: ATTENDING PHYSICIAN Specialist; FAMILY PHYSICIAN Internal Medicine
DX: N18.4 Chronic kidney disease, stage 4 (severe) (principal); D63.1 Anemia in chronic kidney disease; I10 Essential (primary) hypertension; R80.9 Proteinuria, unspecified; N25.81 Secondary hyperparathyroidism of renal origin
CPT/HCPCS: 36415; 80048; 82570; 83970; 84100; 84156; 85018

== ENCOUNTER → 2024-10-10 07:36 | Outpatient (REF) | payer OTHER, SELFPAY ==
[2024-10-10 08:53] LABS: Intact PTH 123.3 pg/ml (13.6-85.8)
[2024-10-10 09:23] LABS: Blood Urea Nitrogen 49 mg/dl (9-20); Calcium 9.2 mg/dl (8.4-10.2); Carbon Dioxide 17 mmol/L (22-30); Chloride 110 mmol/L (98-107); Glucose 90 mg/dl (70-99); Phosphorus 4.3 mg/dl (2.5-4.5); Potassium 4.6 mmol/L (3.5-5.1); Sodium 140 mmol/L (135-145); eGFR 20.94
== END ==
LOC: REG 07:36
PROVIDERS: ATTENDING PHYSICIAN Specialist
DX: N25.81 Secondary hyperparathyroidism of renal origin (principal); N18.4 Chronic kidney disease, stage 4 (severe)
CPT/HCPCS: 36415; 80048; 83970; 84100

== ENCOUNTER → 2024-11-12 16:16 | Outpatient (REF) | payer OTHER, SELFPAY | LOC: RAD 16:16 | PROVIDERS: ATTENDING PHYSICIAN Internal Medicine | DX: S20.212A Contusion of left front wall of thorax, initial encounter (principal); W19.XXXA Unspecified fall, initial encounter | CPT/HCPCS: 71101 ==

== ENCOUNTER → 2024-12-12 08:26 | Outpatient (REF) | payer OTHER, SELFPAY ==
[2024-12-12 11:25] LABS: ALT (SGPT) 14 U/L (0-50); AST (SGOT) 18 U/L (17-59); Albumin 3.8 g/dl (3.5-5.0); Alkaline Phosphatase 86 U/L (38-126); Blood Urea Nitrogen 53 mg/dl (9-20); Calcium 8.9 mg/dl (8.4-10.2); Carbon Dioxide 21 mmol/L (22-30); Chloride 114 mmol/L (98-107); Glucose 91 mg/dl (70-99); HDL Cholesterol 39 mg/dl; LDL Cholesterol, Calculated 40 mg/dl; Potassium 4.8 mmol/L (3.5-5.1); Sodium 144 mmol/L (135-145); Total Bilirubin 0.5 mg/dl (0.2-1.3); Total Cholesterol 92 mg/dl (50-199); Total Protein 6.4 g/dl (6.3-8.2); Triglyceride 68 mg/dl (10-149); Very Low Density Lipoprotein 13 mg/dl (0-30); eGFR 16.71
[2024-12-12 14:31] LABS: % Basophils 0.6 % (0-2); % Eosinophils 2.9 % (0-6); % Immature Granulocytes 0.6 % (0-0.5); % Lymphocytes 34.6 % (20.5-51.1); % Monocytes 9.6 % (1.7-9.3); % Neutrophils 51.7 % (42.2-75.2); Absolute Eosinophils 0.2 10^3/uL (0-0.7); Absolute Lymphocytes 2.2 10^3/uL (1.2-3.4); Absolute Monocytes 0.6 10^3/uL (0.1-0.6); Absolute Neutrophils 3.2 10^3/uL (1.4-6.5); Hematocrit 34.7 % (39.0-52.0); Mean Corp Hgb Conc. 34.6 g/dL (33.0-37.0); Mean Corpuscular Hgb 32.6 pg (27.0-31.0); Mean Corpuscular Volume 94.3 fL (80.0-94.0); Mean Platelet Volume 11.3 fL (7.4-10.4); Nucleated Red Blood Cells % 0 % (-); Platelet Count 195 10^3/uL (130-400); Red Blood Cell Count 3.68 10^6/uL (4.70-6.10); White Blood Cell Count 6.2 10^3/uL (4.8-10.8)
[2024-12-14 01:30] LABS: PSA Total 7.7 ng/mL (0.0-4.0)
== END ==
LOC: REG 08:26
PROVIDERS: ATTENDING PHYSICIAN Internal Medicine; OTHER PHYSICIAN Surgery
DX: Z00.01 Encounter for general adult medical examination with abnormal findings (principal); E78.5 Hyperlipidemia, unspecified; I10 Essential (primary) hypertension; N18.4 Chronic kidney disease, stage 4 (severe); Z68.28 Body mass index [BMI] 28.0-28.9, adult; Z12.5 Encounter for screening for malignant neoplasm of prostate; N40.1 Benign prostatic hyperplasia with lower urinary tract symptoms
CPT/HCPCS: 36415; 80053; 80061; 84153; 84154; 85025

== ENCOUNTER → 2024-12-24 09:28 | Outpatient (REF) | payer OTHER, SELFPAY ==
[2024-12-24 11:48] LABS: Urine Protein 104 mg/dl (0-12)
[2024-12-24 12:09] LABS: Blood Urea Nitrogen 46 mg/dl (9-20); Calcium 8.7 mg/dl (8.4-10.2); Carbon Dioxide 21 mmol/L (22-30); Chloride 111 mmol/L (98-107); Glucose 89 mg/dl (70-99); Potassium 4.2 mmol/L (3.5-5.1); Sodium 141 mmol/L (135-145); eGFR 18.61
== END ==
LOC: REG 09:28
PROVIDERS: ATTENDING PHYSICIAN Specialist; FAMILY PHYSICIAN Internal Medicine
DX: I10 Essential (primary) hypertension (principal); R80.9 Proteinuria, unspecified; N18.4 Chronic kidney disease, stage 4 (severe); N25.81 Secondary hyperparathyroidism of renal origin
CPT/HCPCS: 36415; 80048; 82570; 84156

== ENCOUNTER → 2024-12-25 15:21 | Outpatient (REF) | payer OTHER, SELFPAY | LOC: RCS 15:21 | PROVIDERS: ATTENDING PHYSICIAN Internal Medicine Cardiovascular Disease; FAMILY PHYSICIAN Internal Medicine | DX: I35.0 Nonrheumatic aortic (valve) stenosis (principal) | CPT/HCPCS: 93306 ==

== ENCOUNTER → 2025-01-10 07:11 | Outpatient (REF) | payer OTHER, SELFPAY ==
[2025-01-10 08:19] LABS: Hemoglobin 10.6 g/dL (13.0-18.0)
[2025-01-10 10:05] LABS: Blood Urea Nitrogen 52 mg/dl (9-20); Calcium 9.2 mg/dl (8.4-10.2); Carbon Dioxide 19 mmol/L (22-30); Chloride 114 mmol/L (98-107); Glucose 91 mg/dl (70-99); Phosphorus 4.2 mg/dl (2.5-4.5); Potassium 4.7 mmol/L (3.5-5.1); Sodium 143 mmol/L (135-145); eGFR 18.61
[2025-01-12 08:54] LABS: Intact PTH 121.7 pg/ml (13.6-85.8)
== END ==
LOC: REG 07:11
PROVIDERS: ATTENDING PHYSICIAN Specialist; FAMILY PHYSICIAN Internal Medicine
DX: N18.4 Chronic kidney disease, stage 4 (severe) (principal); N25.81 Secondary hyperparathyroidism of renal origin; I10 Essential (primary) hypertension; R80.9 Proteinuria, unspecified; E87.20 Acidosis, unspecified
CPT/HCPCS: 36415; 80048; 83970; 84100; 85018

== ENCOUNTER → 2025-03-09 08:36 | Outpatient (REF) | payer OTHER, SELFPAY | LOC: REG 08:36 | PROVIDERS: ATTENDING PHYSICIAN Surgery; FAMILY PHYSICIAN Internal Medicine | DX: R97.20 Elevated prostate specific antigen [PSA] (principal) | CPT/HCPCS: 36415; 84153; 84154 ==

== ENCOUNTER → 2025-03-27 09:33 | Outpatient (REF) | payer OTHER, SELFPAY ==
[2025-03-27 10:51] LABS: Hematocrit 30.9 % (39.0-52.0); Hemoglobin 10.5 g/dL (13.0-18.0); Mean Corp Hgb Conc. 34.0 g/dL (33.0-37.0); Mean Corpuscular Volume 94.5 fL (80.0-94.0); Nucleated Red Blood Cells % 0 % (-); Platelet Count 182 10^3/uL (130-400); Red Cell Dist. Width 12.5 % (11.5-14.5)
[2025-03-27 11:25] LABS: ALT (SGPT) 14 U/L (0-50); AST (SGOT) 17 U/L (17-59); Albumin 3.8 g/dl (3.5-5.0); Alkaline Phosphatase 61 U/L (38-126); Blood Urea Nitrogen 61 mg/dl (9-20); Calcium 9.0 mg/dl (8.4-10.2); Carbon Dioxide 20 mmol/L (22-30); Chloride 109 mmol/L (98-107); Glucose 93 mg/dl (70-99); Potassium 5.1 mmol/L (3.5-5.1); Sodium 137 mmol/L (135-145); Total Protein 6.3 g/dl (6.3-8.2); eGFR 15.14
== END ==
LOC: REG 09:33
PROVIDERS: ATTENDING PHYSICIAN Specialist; FAMILY PHYSICIAN Internal Medicine
DX: E78.5 Hyperlipidemia, unspecified (principal); N18.4 Chronic kidney disease, stage 4 (severe); D53.9 Nutritional anemia, unspecified; D63.1 Anemia in chronic kidney disease
CPT/HCPCS: 36415; 80053; 82570; 83970; 84100; 84156; 85025

== ENCOUNTER → 2025-04-19 14:45 | Outpatient (REF) | payer OTHER, SELFPAY | LOC: RAD 14:45 | PROVIDERS: ATTENDING PHYSICIAN Surgery Vascular Surgery; FAMILY PHYSICIAN Internal Medicine; REFERRING PHYSICIAN Specialist | DX: L98.8 Other specified disorders of the skin and subcutaneous tissue (principal) | CPT/HCPCS: 93985 ==

== ENCOUNTER → 2025-04-23 09:17 | Outpatient (REF) | payer OTHER, SELFPAY ==
[2025-04-23 10:44] LABS: Hemoglobin 9.9 g/dL (13.0-18.0)
[2025-04-23 11:14] LABS: Blood Urea Nitrogen 66 mg/dl (9-20); Calcium 9.1 mg/dl (8.4-10.2); Carbon Dioxide 17 mmol/L (22-30); Chloride 111 mmol/L (98-107); Glucose 90 mg/dl (70-99); Iron 64 ug/dl (49-181); Potassium 4.4 mmol/L (3.5-5.1); Sodium 137 mmol/L (135-145); eGFR 16.71
[2025-04-23 11:22] LABS: Total Iron Binding Capacity 254 ug/dl (261-462)
[2025-04-23 11:49] LABS: Ferritin 95.8 ng/ml (17.9-464.0)
== END ==
LOC: REG 09:17
PROVIDERS: ATTENDING PHYSICIAN Specialist; FAMILY PHYSICIAN Internal Medicine; OTHER PHYSICIAN Internal Medicine Cardiovascular Disease
DX: N18.4 Chronic kidney disease, stage 4 (severe) (principal); D63.1 Anemia in chronic kidney disease; N25.81 Secondary hyperparathyroidism of renal origin
CPT/HCPCS: 36415; 80048; 82728; 83540; 83550; 83970; 84100; 85018

== ENCOUNTER 2025-05-15 10:06 | Day surgery (SDC) | payer OTHER, SELFPAY ==
[2025-05-15] VITALS (10 sets, daily range): BP systolic 110–154; BP diastolic 42–58; BMI 26.0
[2025-05-15 10:43] LABS: Hematocrit 29.6 % (39.0-52.0); Hemoglobin 10.2 g/dL (13.0-18.0); Mean Corp Hgb Conc. 34.5 g/dL (33.0-37.0); Mean Corpuscular Volume 92.5 fL (80.0-94.0); Platelet Count 188 10^3/uL (130-400); Red Cell Dist. Width 13.1 % (11.5-14.5)
[2025-05-15 10:47] LABS: Blood Urea Nitrogen 70 mg/dl (9-20); Calcium 9.2 mg/dl (8.4-10.2); Carbon Dioxide 17 mmol/L (22-30); Chloride 113 mmol/L (98-107); Estimated Creatinine Clearance 13 ml/min; Glucose 93 mg/dl (70-99); Potassium 4.1 mmol/L (3.5-5.1); Sodium 139 mmol/L (135-145); eGFR 17.30
[2025-05-15 10:53] LABS: INR 1.07; PT 14.5 Sec (11.4-14.6)
[2025-05-15 10:54] LABS: APTT 29.5 Sec (23.4-35.0)
[2025-05-15] MEDS: PERIDEX 0.12% ORAL RINSE 15 ML PO (11:01)
[2025-05-15] MEDS: BACTROBAN NASAL 1 GRAM NASAL (11:02)
--- NOTE | 2025-05-15 12:16 | W.SUR.PREOP ---
Pre-Operative Surgical Note
-
I have examined this patient prior to the performance of the scheduled procedure.
The patient's condition is unchanged from the time of the current History and
Physical and the patient is able to undergo the scheduled procedure.
--- NOTE | 2025-05-15 14:25 | W.SUR.POST ---
Surgical Immediate Post Op
Note
Pre Op Diagnosis: ESRD
Post Op Diagnosis: ESRD
Procedure Performed: LUE radiocephalic AV fistula creation
Primary Surgeon: Twin
Secondary Surgeons: Quintin BEAR
Anesthesia: LMA
Estimated Blood Loss: 5cc
Fluids: see anesthesia flow sheet
Drains/Shunts: none
Specimens/Cultures: none
Doppler/Duplex/Angio (Y/N): Y
Complications: none
Operative Findings: +thrill
--- NOTE | 2025-05-15 14:36 | OR.RPT ---
Operative Report
Operative Report
PROCEDURE DATE: 05/15/2025
Preoperative diagnosis: Chronic kidney disease stage IV, approaching need for hemodialysis.
Postoperative diagnosis: Same
Procedure: Left upper extremity radiocephalic arteriovenous fistula creation
Surgeon: Twin
Activity Aid: KAREN Ribeiro, required for all aspects of procedure including assistance with traction/countertraction, following a suture line, assistance with closure.
Complications: None
Anesthesia: General
Indications for procedure:
Worsening chronic kidney disease. Referred for hemodialysis access creation due to concern for needing imminent dialysis. Risk/benefits/alternatives of arteriovenous access creation discussed. Patient understood all wished to proceed.
Description of procedure:
Patient was identified brought to the operating room placed on the table in supine position. After the induction of anesthesia, I used an ultrasound/duplex to assess the left upper extremity superficial veins. The cephalic vein in the forearm
actually looks suitable. Preoperative vein mapping had demonstrated that to be slightly small, but based on duplex that I performed at the time of induction of anesthesia, with relaxation the vein had dilated some. After the adequate
administration of anesthesia and perioperative antibiotics the was prepped and draped in the standard surgical fashion. A standard preoperative timeout was undertaken and everybody was in agreement the plan. A longitudinal incision was made distal
forearm/wrist on the radial aspect. This was carried through skin subcutaneous tissue.
A small lateral subcutaneous flap was raised and the cephalic vein was identified. It was carefully dissected away from surrounding structures take great care to avoid any injury to the structures. Any branches were ligated between silk ties and
then divided. Thus this allowed me to mobilize the vein. Note, in a more cephalad direction when I dissected the vein, I could see a confluence to a branch draining from more laterally in the forearm. I placed a clip on this branch to avoid any
stealing. Once I mobilized the suitable segment, I deepened my dissection in the medial aspect of the incision through the fascial layer. I identified the radial artery. I carefully dissected away from surrounding structures take great care to
avoid any injury to structures. It was a somewhat small artery, but was soft and pulsatile. I passed a vessel loop around it proximally and distally.
Next, I ligated the cephalic vein distally in my field with a silk tie and a clip. I then transected it. I distended the vein under heparinized saline. It distended very well. I passed the dilators using 2.5 mm which passed without any
difficulty whatsoever. I marked the anterior surface of the vein under distention to avoid any kinking or twisting.
Next, I gave the patient 3000 units of intravenous heparin. I placed Yasargil clips on the radial artery proximally and distally to occlude. I made an arteriotomy with a [place] blade and extended using a micro Lacey scissor. The artery wall was
soft and normal. However it was a small artery. I then spatulated the cephalic vein and sewed an end to side anastomosis using a running 7-0 Prolene suture. I backbled the artery and then completed and tied down my suture line. Next I released
my proximal Yasargil clip. Finally I released my Yasargil clip. There was a reasonable thrill in the fistula. I confirmed good flow with excellent dopplerable signals through the cephalic vein in the forearm. There was an excellent pulse in the
radial artery distally to the fistula. At this point I was very satisfied. I irrigated. I achieved and confirmed full hemostasis. We then closed in layers using 3-0 Vicryl deep dermal layer followed by 4-0 Monocryl subcuticular stitch.
Dermabond was applied. The patient tolerated the procedure well.
[2025-05-15] MEDS: TYLENOL 650 MG PO (15:58)
== END 2025-05-15 17:00 | disposition home or self-care (01) ==
LOC: CATH 10:06
PROVIDERS: ATTENDING PHYSICIAN Surgery Vascular Surgery; OTHER PHYSICIAN Internal Medicine Cardiovascular Disease; PRIMARYCARE PHYSICIAN Internal Medicine
DX: I12.9 Hypertensive chronic kidney disease with stage 1 through stage 4 chronic kidney disease, or unspecified chronic kidney disease (principal); N18.4 Chronic kidney disease, stage 4 (severe); I25.2 Old myocardial infarction; I25.10 Atherosclerotic heart disease of native coronary artery without angina pectoris; Z95.5 Presence of coronary angioplasty implant and graft; Z79.899 Other long term (current) drug therapy
CPT/HCPCS: 36821; 80048; 85027; 85610; 85730; 86850; 86900; 86901

== ENCOUNTER → 2025-06-26 13:25 | Outpatient (REF) | payer OTHER, SELFPAY ==
[2025-06-26 15:29] LABS: Hemoglobin 9.9 g/dL (13.0-18.0)
[2025-06-26 15:56] LABS: Blood Urea Nitrogen 47 mg/dl (9-20); Calcium 9.0 mg/dl (8.4-10.2); Carbon Dioxide 25 mmol/L (22-30); Chloride 109 mmol/L (98-107); Glucose 112 mg/dl (70-99); Magnesium 2.1 mg/dl (1.6-2.3); Potassium 4.4 mmol/L (3.5-5.1); Sodium 140 mmol/L (135-145); eGFR 17.93
== END ==
LOC: REG 13:25
PROVIDERS: ATTENDING PHYSICIAN Specialist; FAMILY PHYSICIAN Internal Medicine
DX: N18.4 Chronic kidney disease, stage 4 (severe) (principal); R80.9 Proteinuria, unspecified; N25.81 Secondary hyperparathyroidism of renal origin; E87.20 Acidosis, unspecified; R25.1 Tremor, unspecified
CPT/HCPCS: 36415; 80048; 83735; 83970; 84100; 85018

== ENCOUNTER → 2025-07-01 09:22 | Outpatient (REF) | payer OTHER, SELFPAY | LOC: RAD 09:22 | PROVIDERS: ATTENDING PHYSICIAN Registered Nurse; FAMILY PHYSICIAN Internal Medicine | DX: N18.4 Chronic kidney disease, stage 4 (severe) (principal) | CPT/HCPCS: 93990 ==

== ENCOUNTER → 2025-07-08 11:08 | Outpatient (REF) | payer OTHER, SELFPAY | LOC: RCS 11:08 | PROVIDERS: ATTENDING PHYSICIAN Internal Medicine Cardiovascular Disease; FAMILY PHYSICIAN Internal Medicine; REFERRING PHYSICIAN Specialist | DX: I35.0 Nonrheumatic aortic (valve) stenosis (principal) | CPT/HCPCS: 93306 ==